=== PATIENT | male | born 1935 | race Two or more races ===

== ENCOUNTER 2018-02-09 07:15 | Day surgery (SDC) | payer OTHER | END 2018-02-09 13:40 | disposition home or self-care (01) | LOC: AMB-ENDOS 07:15 | DX: D12.3 Benign neoplasm of transverse colon (principal) ==

== ENCOUNTER 2018-03-29 08:30 | Inpatient (IN) | payer OTHER ==
[~2018-03-29] VITALS: Ht 185.4 cm; Wt 83.9 kg
[2018-03-29] MEDS ORDERED: METOPROLOL ER-1 EAC1 PO (10:40)
[2018-03-29] MEDS ORDERED: COZAAR25 MG PO (10:40)
[2018-03-29] MEDS ORDERED: LEVO-T50 MCG PO (10:40)
[2018-03-29] MEDS ORDERED: ASA81 MG PO (10:41)
[2018-04-04] MEDS ORDERED: ULTRACET PO (15:06)
[2018-04-04] MEDS ORDERED: OMEPRAZOLE20 MG PO (15:06)
[2018-04-04] MEDS ORDERED: INTESTINEX680 M1 PO (15:06)
== END 2018-04-04 17:26 | disposition home or self-care (01) | DRG 331 ==
LOC: SURH 04-01 05:55 → O/R 04-01 05:55 → SURH 04-01 07:00
PROVIDERS: ADMIT Surgery
PROC: 0DTM4ZZ Resection of Descending Colon, Percutaneous Endoscopic Approach (ICD-10-PCS; principal; 2018-04-01 07:00)
DX: C18.6 Malignant neoplasm of descending colon (principal)

== ENCOUNTER 2019-05-17 11:30 | Day surgery (SDC) | payer OTHER ==
[~2019-05-17 11:30] MED LIST: ASA81 MG PO; COZAAR25 MG PO; INTESTINEX680 M1 PO; LEVO-T50 MCG PO; METOPROLOL ER-1 EAC1 PO; OMEPRAZOLE20 MG PO; ULTRACET PO
== END 2019-05-17 14:30 | disposition home or self-care (01) ==
LOC: AMB-ENDOS 11:30 → ADM 14:30
DX: K62.89 Other specified diseases of anus and rectum (principal); K57.30 Diverticulosis of large intestine without perforation or abscess without bleeding; K64.8 Other hemorrhoids